=== PATIENT | female | born 1995 | race Caucasian/White ===

== ENCOUNTER → 2018-05-04 16:18 | Outpatient (CLI) | payer OTHER, SELFPAY ==
[2018-05-04 20:13] LABS: HCG,Quantitative 8 mIU/mL
== END ==
PROVIDERS: Visit Provider Nurse Practitioner Obstetrics & Gynecology
DX: O03.9 Complete or unspecified spontaneous abortion without complication (principal)
CPT/HCPCS: 36415; 84702

== ENCOUNTER → 2018-06-11 11:02 | Outpatient (CLI) | payer OTHER, SELFPAY ==
[2018-06-11 12:01] LABS: Basophils % 0.5 % (0.1-2.0); Eosinophils # 0.1 K/mm3 (0.0-0.4); Eosinophils % 2.5 % (0.1-12.0); Hematocrit 38.6 % (37.0-47.0); Hemoglobin 13.1 g/dL (12.2-16.2); Lymphocytes # 2.1 K/mm3 (0.7-4.5); Lymphocytes % 37.6 % (10-50); Mean Corpuscular HGB Conc 33.9 g/dL (31.8-35.4); Mean Corpuscular Hemoglobin 30.3 pg (27.0-31.2); Mean Corpuscular Volume 89.3 fl (81-99); Mean Platelet Volume 6.6 fl (7.4-10.4); Monocytes # 0.3 K/mm3 (0.1-1.0); Neutrophils % 54.5 % (37.0-80.0); Platelet Count 178 K/mm3 (142-424); Red Blood Count 4.32 M/mm3 (4.20-5.40); Red Cell Distribution Width 13.5 % (11.5-17.5); White Blood Count 5.5 K/mm3 (4.8-10.8)
[2018-06-11 19:42] LABS: Amphetamine/Metha Screen,Urine Negative ng/mL (<1000); Barbiturates Screen,Urine Negative ng/mL (<200); Benzodiazepines Screen,Urine Negative ng/mL (<200); Cannabinoid Screen,Urine Negative ng/mL (<50); Cocaine Screen,Urine Negative ng/mL (<300); Methadone Screen,Urine Negative ng/mL (<300); Opiate Screen,Urine Negative ng/mL (<300); Phencyclidine Screen,Urine Negative ng/mL (<25)
[2018-06-12 09:20] LABS: Rapid Plasma Reagin Ab Titer Non Reactive (NonRea<1:1)
[2018-06-12 13:45] LABS: HIV Screen 4th Generation wRfx Non Reactive (Non Reactive); Hepatitis B Surface Antigen Negative (Negative); Hepatitis C Antibody 0.1 s/co ratio (0.0-0.9); Rubella Antibodies, IgG <0.90 index (Immune >0.99)
[2018-06-13 18:38] LABS: Buprenorphine, Urine Negative ng/mL (Cutoff=10)
== END ==
PROVIDERS: Visit Provider Nurse Practitioner Obstetrics & Gynecology
DX: Z34.90 Encounter for supervision of normal pregnancy, unspecified, unspecified trimester (principal)
CPT/HCPCS: 36415; 80305; 80307; 85025; 86592; 86703; 86762; 86850; 87340; 87380; G0432

== ENCOUNTER → 2018-06-18 07:48 | Outpatient (CLI) | payer OTHER, SELFPAY ==
--- NOTE | 2018-06-18 07:50 | US_ITS ---
US OB transvaginal HISTORY: ITS.REASON: US OB Dates ORDERING PHYSICIAN: Chirag Bunn MD PATIENT AGE: 22 years COMPARISON: None FINDINGS: An intrauterine gestational sac is present with a pole with a crown-rump length of 0.46cm correlating to gestational age of 6 weeks 2 days. heart tones are present with an FHR of 112 bpm's. Yolk sac is noted. Adnexa: Unremarkable. IMPRESSION: Live intrauterine gestation at 6 weeks 2 days as described above. Estimated due date by Ultrasound is 02/09/2019
== END ==
PROVIDERS: PCP Nurse Practitioner Obstetrics & Gynecology; Visit Provider Nurse Practitioner Obstetrics & Gynecology
DX: O26.841 Uterine size-date discrepancy, first trimester (principal)
CPT/HCPCS: 76817

== ENCOUNTER → 2018-08-04 07:43 | Outpatient (CLI) | payer OTHER, SELFPAY ==
--- NOTE | 2018-08-04 07:44 | US_ITS ---
US gallbladder HISTORY: Right upper quadrant pain and vomiting ITS.REASON: US Gallbladder- Possible Cholecystitis RUQP ORDERING PHYSICIAN: Chirag Bunn MD PATIENT AGE: 23 years Comparison: None FINDINGS: PANCREAS: Unremarkable. No obvious mass or abnormal fluid collection. No ductal dilatation LIVER: No focal liver lesions demonstrated. Homogeneous echogenicity. No intrahepatic biliary ductal dilatation evident RIGHT KIDNEY: Unremarkable. Normal size and echogenicity. No hydronephrosis GALLBLADDER: No gallstones, gallbladder wall thickening, pericholecystic fluid, or biliary dilatation. There are a few specular echoes are present within the gallbladder without shadowing consistent with sludge/concentrated bile IMPRESSION: 1. No evidence of cholelithiasis or cholecystitis. 2. Small amount gallbladder sludge
== END ==
PROVIDERS: PCP Family Medicine; Visit Provider Nurse Practitioner Obstetrics & Gynecology
DX: K81.9 Cholecystitis, unspecified (principal); R10.11 Right upper quadrant pain
CPT/HCPCS: 76705

== ENCOUNTER → 2018-09-21 09:06 | Outpatient (CLI) | payer OTHER, SELFPAY ==
--- NOTE | 2018-09-21 09:07 | US_ITS ---
US OB /maternal detail: INDICATION: ITS.REASON: US OB Complete ORDERING PHYSICIAN: Chirag Bunn MD PATIENT AGE: 23 years TECHNIQUE: ultrasound transabdominal scanning. COMPARISON: No previous relevant studies. FINDINGS: Single viable intrauterine gestation. Breech position. Placenta: Anterior placenta grade 1. There is average amount fluid. The cervix appears satisfactory. Closed and measuring 3 cm in length. Complete survey performed and was unremarkable on the submitted images as in PACS. No discrete anomalies identified on survey imaging by technologist. Active fetus. Three-vessel cord with satisfactory umbilical cord insertion. 4- chamber heart noted. Survey of brain & ventricles unremarkable. Face and neck survey unremarkable. Diaphragm and chest views unremarkable. Abdomen: Both kidneys noted and unremarkable. Stomach noted and satisfactory. Spine: Survey of the spine satisfactory with no anomalies identified nor imaged. Both arms and legs noted. Amniotic Fluid: Adequate. Maternal adnexa: No significant findings. Measurements: Average ultrasound age 19w6d. Gestational Age 19w6d. Estimated due date by ultrasound age 0802/09/2019. Estimated weight 323 grams. BPD = 19w5d OFD = 20w5d HC = 19w4d AC = 20w0d FL = 20w1d Growth Percentile= 51% Heart Rate = 149 Cerebellum = 20w5d Humerus = 19w4d HC/AC is 1.15 (1.09-1.26). CI is 74% (70-86%). FL/BPD is 72%. FL/AC is 22%. IMPRESSION: There is a single live fetus which is in breech presentation with an average ultrasound age of 19 weeks and 6 days. heart body motion noted. All parameters correlate. Fetus is active with no obvious anomalies. Please see above for details
== END ==
PROVIDERS: PCP Family Medicine; Visit Provider Nurse Practitioner Obstetrics & Gynecology
DX: Z36.0 Encounter for antenatal screening for chromosomal anomalies (principal)
CPT/HCPCS: 76811

== ENCOUNTER 2018-10-30 17:49 | Outpatient (CLI) | payer OTHER, SELFPAY ==
[2018-10-30 18:13] VITALS: BMI 25.7; BMI 26.5
[2018-10-30 18:51] LABS: Microscopic, Urine URINE MICROSCOPIC (MICROSCOPIC)
[2018-10-30 19:02] LABS: Appearance,Urine CLEAR (Clear); Bilirubin,Urine Negative (Negative); Blood, Urine Negative (Negative); Color,Urine YELLOW (Yellow); Glucose,Urine (UA) Negative (Negative); Ketones,Urine Negative (Negative); Leukocyte Esterase,Urine 1+ (Negative); Nitrate,Urine Negative (Negative); Protein,Urine Negative (Negative); Specific Gravity, Urine 1.015 (1.005-1.030); Urobilinogen,Urine 0.2 EU/dl (0.2)
[2018-10-30 19:18] LABS: Amphetamine/Metha Screen,Urine Negative ng/mL (<1000); Barbiturates Screen,Urine Negative ng/mL (<200); Benzodiazepines Screen,Urine Negative ng/mL (<200); Cannabinoid Screen,Urine Negative ng/mL (<50); Cocaine Screen,Urine Negative ng/mL (<300); Methadone Screen,Urine Negative ng/mL (<300); Opiate Screen,Urine Negative ng/mL (<300); Phencyclidine Screen,Urine Negative ng/mL (<25)
[2018-10-30 19:20] LABS: Fetal Fibronectin (Rapid) Negative (Negative)
[2018-10-30 19:21] LABS: Bacteria,Urine Trace /lpf; Trichomonas,Urine Occasional /lpf
== END 2018-10-30 20:10 | disposition home or self-care (01) ==
LOC: OBOUT 17:51 → OB 17:53
PROVIDERS: PCP Family Medicine; Visit Provider Nurse Practitioner Obstetrics & Gynecology
DX: O47.02 False labor before 37 completed weeks of gestation, second trimester (principal); Z3A.20 20 weeks gestation of pregnancy
CPT/HCPCS: 59025; 80305; 81001; 82731; 87086; 96360; 96372

== ENCOUNTER 2018-10-31 18:05 | Outpatient (CLI) | payer OTHER, SELFPAY ==
[2018-10-31 18:20] VITALS: BP 104/65; PULSE 104; RESP 20; TEMP 37.4; O2SAT 96; BMI 26.2
== END 2018-10-31 19:47 | disposition home or self-care (01) ==
LOC: OBOUT 18:06 → OB 18:07
PROVIDERS: PCP Family Medicine; Visit Provider Nurse Practitioner Obstetrics & Gynecology
DX: O47.02 False labor before 37 completed weeks of gestation, second trimester (principal); Z3A.20 20 weeks gestation of pregnancy
CPT/HCPCS: 59025; 96372

== ENCOUNTER 2018-11-19 07:43 | Outpatient (CLI) | payer OTHER, SELFPAY ==
[2018-11-19 08:31] LABS: Glucose,Fasting 83 mg/dL (60-105)
[2018-11-19 09:45] VITALS: BP 126/69; PULSE 114; RESP 18; O2SAT 98
[2018-11-19 10:00] LABS: Glucose 1 Hour 121 mg/dL (74-106)
== END 2018-11-19 09:55 | disposition home or self-care (01) ==
LOC: LAB 07:44 → INF 09:41
PROVIDERS: Visit Provider Nurse Practitioner Obstetrics & Gynecology
DX: Z34.90 Encounter for supervision of normal pregnancy, unspecified, unspecified trimester (principal)
CPT/HCPCS: 36415; 82951; 96372; J2790

== ENCOUNTER 2018-11-28 18:35 | Outpatient (CLI) | payer OTHER, SELFPAY ==
[2018-11-28 18:48] VITALS: BP 103/62; PULSE 114; RESP 20; TEMP 36.6; O2SAT 100; BMI 26.1
[2018-11-28 19:00] LABS: Microscopic, Urine URINE MICROSCOPIC (MICROSCOPIC)
[2018-11-28 19:19] LABS: Appearance,Urine CLOUDY (Clear); Blood, Urine Negative (Negative); Color,Urine DK YELLOW (Yellow); Glucose,Urine (UA) Negative (Negative); Ketones,Urine 3+ (Negative); Leukocyte Esterase,Urine 2+ (Negative); Nitrate,Urine Negative (Negative); Protein,Urine 1+ (Negative); Specific Gravity, Urine >= 1.030 (1.005-1.030)
[2018-11-28 19:22] LABS: Bilirubin,Urine 2+ (Negative); Squamous Epithelial Cell,Urine 50-100 #/hpf (0-5); WBC,Urine 20-50 #/hpf (0-3)
[2018-11-28 19:25] LABS: Amphetamine/Metha Screen,Urine Negative ng/mL (<1000); Barbiturates Screen,Urine Negative ng/mL (<200); Benzodiazepines Screen,Urine Negative ng/mL (<200); Cannabinoid Screen,Urine Negative ng/mL (<50); Cocaine Screen,Urine Negative ng/mL (<300); Methadone Screen,Urine Negative ng/mL (<300); Opiate Screen,Urine Negative ng/mL (<300); Phencyclidine Screen,Urine Negative ng/mL (<25)
[2018-11-28 20:34] LABS: Basophils % 0.1 % (0.1-2.0); Eosinophils % 0.2 % (0.1-12.0); Hematocrit 33.3 % (37.0-47.0); Lymphocytes # 0.9 K/mm3 (0.7-4.5); Lymphocytes % 11.4 % (10-50); Mean Corpuscular Hemoglobin 31.8 pg (27.0-31.2); Mean Corpuscular Volume 88.1 fl (81-99); Mean Platelet Volume 6.9 fl (7.4-10.4); Monocytes # 0.3 K/mm3 (0.1-1.0); Monocytes % 3.4 % (1.7-9.3); Neutrophils # 6.4 K/mm3 (1.8-7.8); Platelet Count 183 K/mm3 (142-424); Red Blood Count 3.78 M/mm3 (4.20-5.40); Red Cell Distribution Width 13.1 % (11.5-17.5); White Blood Count 7.6 K/mm3 (4.8-10.8)
[2018-11-28 20:36] LABS: MANUAL DIFFERENTIAL MANUAL DIFFERENTIAL (MANUAL DIFF)
[2018-11-28 20:48] LABS: Alanine Aminotransferase 23 U/L (12-78); Albumin Level 2.6 gm/dL (3.4-5.0); Albumin/Globulin Ratio 0.7 (1.1-1.8); Alkaline Phosphatase 103 U/L (46-116); Anion Gap 13.4 mEq/L (5-15); Aspartate Amino Transferase 23 U/L (15-37); Bilirubin,Total 0.5 mg/dL (0.2-1.0); Blood Urea Nitrogen 7 mg/dL (7-18); Calcium 8.3 mg/dL (8.5-10.1); Carbon Dioxide 23 mmol/L (21.0-32.0); Chloride 103 mmol/L (98-107); Creatinine Clearance Estimated 159 mL/min (50-200); Creatinine,Serum 0.59 mg/dL (0.55-1.02); Eosinophils % 1 % (0-3); Estimated Glomerular Filt Rate 124 ml/min (>60); GFR (African American) 150 ML/MIN (>60); Globulin 3.7 gm/dl (1.3-3.2); Glucose 78 mg/dL (74-106); Lymphocytes % 6 % (10-50); Monocytes % 2 % (2-9); Neutrophils % 85 % (42-76); Platelet Estimate Normal; Potassium 3.4 mmoL/L (3.5-5.1); RBC Morphology Normal; Sodium 136 mmol/L (136-145); Total Cells Counted 100; Total Protein,Serum 6.3 gm/dL (6.4-8.2)
== END 2018-11-28 21:50 | disposition home or self-care (01) ==
LOC: OBOUT 18:39 → OB 18:39
PROVIDERS: PCP Nurse Practitioner Obstetrics & Gynecology; Visit Provider Obstetrics & Gynecology
DX: O47.03 False labor before 37 completed weeks of gestation, third trimester (principal); Z3A.29 29 weeks gestation of pregnancy; M54.5 Low back pain
CPT/HCPCS: 59025; 80053; 80305; 81001; 85007; 85025; 87086; 96360; 96367; J0595

== ENCOUNTER → 2019-01-14 17:22 | Outpatient (CLI) | payer OTHER, SELFPAY | PROVIDERS: Visit Provider Nurse Practitioner Obstetrics & Gynecology | DX: Z34.90 Encounter for supervision of normal pregnancy, unspecified, unspecified trimester (principal) | CPT/HCPCS: 86403 ==

== ENCOUNTER 2019-01-20 14:20 | Inpatient (IN) ==
[2019-01-20 15:51] LABS: Microscopic, Urine URINE MICROSCOPIC (MICROSCOPIC)
[2019-01-20 15:59] LABS: Appearance,Urine CLEAR (Clear); Basophils % 0.2 % (0.1-2.0); Blood, Urine Negative (Negative); Color,Urine YELLOW (Yellow); Eosinophils # 0.1 K/mm3 (0.0-0.4); Eosinophils % 0.5 % (0.1-12.0); Glucose,Urine (UA) Negative (Negative); Hematocrit 32.7 % (37.0-47.0); Hemoglobin 11.2 g/dL (12.2-16.2); Ketones,Urine Negative (Negative); Leukocyte Esterase,Urine TRACE (Negative); Lymphocytes # 2.3 K/mm3 (0.7-4.5); Lymphocytes % 21.1 % (10-50); Mean Corpuscular HGB Conc 34.4 g/dL (31.8-35.4); Monocytes # 0.5 K/mm3 (0.1-1.0); Monocytes % 4.8 % (1.7-9.3); Neutrophils # 7.9 K/mm3 (1.8-7.8); Neutrophils % 73.3 % (37.0-80.0); PH,Urine 6.5 (5.0-8.5); Platelet Count 224 K/mm3 (142-424); Protein,Urine TRACE (Negative); Red Blood Count 3.67 M/mm3 (4.20-5.40); Red Cell Distribution Width 13.3 % (11.5-17.5); Specific Gravity, Urine 1.025 (1.005-1.030); Urobilinogen,Urine 0.2 EU/dl (0.2); White Blood Count 10.8 K/mm3 (4.8-10.8)
[2019-01-20 16:05] LABS: Bilirubin,Urine Negative (Negative)
[2019-01-20 16:09] LABS: Amphetamine/Metha Screen,Urine Negative ng/mL (<1000); Barbiturates Screen,Urine Negative ng/mL (<200); Benzodiazepines Screen,Urine Negative ng/mL (<200); Cannabinoid Screen,Urine Negative ng/mL (<50); Cocaine Screen,Urine Negative ng/mL (<300); Methadone Screen,Urine Negative ng/mL (<300); Opiate Screen,Urine Negative ng/mL (<300); Phencyclidine Screen,Urine Negative ng/mL (<25)
--- NOTE | 2019-01-20 16:10 | History & Physical Report ---
OB - H&P: HPI Antepartum - History of Present Illness Chief complaint: Contractions History of present illness: She is a 23-year-old 6 para 1 aborta 4 who is 38 weeks gestational age. She is having regular contractions here in the office. She is admitted for labor and delivery. She was found to be 5 cm dilated 75% effaced and station - 2. I ruptured her membranes and there was copious clear fluid. IUPC and scalp clip were applied. Stress test is reactive and she is nia every 2 to 3 minutes. She would like an epidural.6 - History of Present Criteria for establishing EDC:: LMP confirmed by 1st trimester US care: good care Ultrasounds: normal mid trimester US Obstetrical complications: none Medical complications: none [facility] History I have reviewed the patient's past medical history: Yes Medical History: Reports:: Asthma Denies:: Diabetes Mellitus Type 1, Diabetes Mellitus Type 2 *Have you ever received a pneumonia vaccine?: No *Have you received a flu vaccine this season?: No Other Surgeries: Yes: Dilation and Curettage. No: Amputation: No Fractures: No - *Social History Smoking Status: Current every day smoker Tobacco Type: cigarettes # Packs/Day (cigarettes): 1 Alcohol Intake: never Substance Use Type: denies use *Occupational Status:: other *Travel in the last 8 weeks: None Family Hx:: No significant family history [employer] history: Abnormal Uterine Bleeding, Spontaneous Para: 1 Review of Systems - Review of Systems Review of systems:: pertinent systems reviewed and negative unless documented below Meds Home Medications Medication Instructions Recorded Confirmed Type Pnv95/Iron Fum/Folic Acid 1 tab PO DAILY 07/06/18 01/20/19 History [ Vitamins Tablet] Progesterone, Micronized 100 mg PO DAILY 07/06/18 01/20/19 History [Progesterone] ferrous sulfate 325 mg (65 mg 325 mg PO DAILY #30 tab 10/07/18 01/20/19 Rx iron) tablet terconazole 0.8 % vaginal cream 1 appful VAGINAL QHS 3 Days #20 g 11/18/18 01/20/19 Rx Allergies Allergy/AdvReac Type Severity Reaction Status Date / Time No Known Allergies Allergy Verified 01/14/19 11:23 OB - H&P: Exam - Physical Exam Vital signs: Temp Pulse Resp BP Pulse Ox 97.8 F 105 H 22 124/71 99 07/24/19 14:30 01/20/19 14:30 01/20/19 14:30 01/20/19 14:30 01/20/19 14:30 - Constitutional no acute distress - Routine HEENT Exam Head: Present: normocephalic Eye: Present: EOMI, PERRL ENT: Present: mucous membranes moist - Routine Neck Exam Present: supple, full ROM - Routine Respiratory Exam Absent: accessory muscle use (good air entry bilaterally), respiratory distress, wheezes, crackles - Routine Cardiovascular Exam Present: RRR. Absent: murmur - Routine Abdominal Exam Present: soft, normoactive bowel sounds. Absent: tenderness, distended, guarding - Routine Rectal Exam Patient deferred: visual exam, digital exam - Routine Exam Patient deferred: external exam, groin exam, perineal exam - Routine Extremities Exam Present: full ROM. Absent: cyanosis, edema - Routine Skin Exam Present: intact. Absent: cyanosis - Routine Neurological Exam Present: alert, oriented X3 - Routine Psychiatric Exam Present: normal affect OB - Results - Labs Labs: Short CBC 01/20/19 Range/Units 15:35 WBC 10.8 (4.8-10.8) K/mm3 Hgb 11.2 L (12.2-16.2) g/dL Hct 32.7 L (37.0-47.0) % Plt Count 224 (142-424) K/mm3 Urine 01/20/19 Range/Units 15:35 Urine Color Yellow (Yellow) Urine Appearance Clear (Clear) Urine pH 6.5 (5.0-8.5) Ur Specific [place] 1.025 (1.005-1.030) Urine Protein Trace (Negative) Urine Glucose (UA) Negative (Negative) OB - A/P Antepartum (1) Normal delivery at term Current visit: Yes Status: Acute - Additional Plan Planning to breastfeed?: Yes Plan: expectant management Additional Information:: She is having regular contractions he is found to be 5 cm dilated. We will expect a vaginal delivery. She is anticipating an epidural shortly.
[2019-01-20 16:18] LABS: Lymphocytes % 20 % (10-50); Monocytes % 2 % (2-9); Neutrophils % 77 % (42-76); RBC Morphology Normal; Total Cells Counted 100
[2019-01-20 17:01] LABS: Bacteria,Urine Trace /lpf
--- NOTE | 2019-01-20 17:07 | Progress Note ---
[facility] Anesthesia Checklist - Patient Identification Patient Identification: Arm Band - Structural Data Admitted From: Home Planned Operative Procedure/s: labor epidural Consent for Planned Operative Procedure(s) Verified: Yes Verified Documents: Surgical Consent, History and Physical - NPO Status Verified Time NPO: 00:00 - Additional verifications Anesthesia Reactions: No - Airway Assessment C-Spine Mobility Assessed: Yes TMJ Mobility Assessed: Yes Dentition: Good Dentition - Neurological Assessment Level of Consciousness: Awake, Alert - Anesthesia Plan Anesthesia Risk discussed: Yes Anesthesia Plan: Verified ASA Class: II Anesthesia Type: Epidural [facility] History I have reviewed the patient's past medical history: Yes Medical History: Reports:: Asthma Denies:: Diabetes Mellitus Type 1, Diabetes Mellitus Type 2 *Have you ever received a pneumonia vaccine?: Yes *Have you received a flu vaccine this season?: No Other Surgeries: Yes: Dilation and Curettage. No: Amputation: No Fractures: No - *Social History Smoking Status: Current every day smoker Tobacco Type: cigarettes # Packs/Day (cigarettes): 1 Alcohol Intake: never Substance Use Type: denies use *Occupational Status:: other *Travel in the last 8 weeks: None Family Hx:: No significant family history [employer] history: Abnormal Uterine Bleeding, Spontaneous Para: 1
--- NOTE | 2019-01-20 17:33 | Progress Note ---
Labor Note - Subjective: Date: 01/20/19 Time: 17:33 regular contraction - Objective: NST:: Reactive Contractions:: every 2-3 minutes Cervical Dilation:: 5-6 Effacement:: 90% Station: -1 Membranes: artificially ruptured - Fetus: Monitoring?: Yes monitoring type:: Internal Comment:: Her scalp clip had fallen off and I reapplied the scalp clip. - Assessment: Labor progressing?: Yes Cephalopelvic disproportion?: No Patient Problems: All Active Problems (Updated 01/20/19 @ 17:04 by Chirag Bunn MD) Bleeding in early (Acute) Epigastric pain (Acute) Gastroenteritis (Acute) Normal delivery at term (Acute) (Acute) First trimester bleeding (Acute) - Plan: Anesthesia for epidural?: Yes Continue to labor down?: Yes Plan for ?: No Continue to monitor?: Yes Start pushing?: No
--- NOTE | 2019-01-20 19:27 | Procedure Note ---
- Delivery Note Delivery Date:: 01/20/19 Delivery Time:: 19:08 Anesthesia Type: Epidural Was labor medically induced?: No Induction method: none Gestational age (weeks): 37 delivered prior to 39 weeks?: Yes Justification for early elective delivery:: Active Labor Infant Gender: Male at 1 minute: 9 at 5 minutes: 9 LAC or MLE?: LAC Delivery Procedure:: She is a 23-year-old 6 para 1 aborta 4 who was 37+ weeks gestational age. She arrived in active labor and was found to be 4 cm dilated. She had her membranes ruptured and under labor epidural progressed to full dilation. She delivered spontaneously a liveborn male child at 7:08 PM in the evening of January 20, 2019. On deliver the head the anterior shoulder then rapidly delivered followed by the rest the 's body atraumatically. The baby cried spontaneously. We allowed the cord to continue to pulsate for approximately 1 minute. The cord was then doubly clamped and cut. The baby was then placed on the mother's abdomen for further care. The nurses assigned Apgars of 9 at 1 minute and 9 at 5 minutes. We then obtained cord blood as well as cord pH. Using gentle traction on the cord and countertraction the fundus I was able to easily deliver the placenta intact. He had a normal three-vessel cord. He had bilateral labial tears were repaired with interrupted 3-0 Vicryl Rapide suture. She had a small first-degree vaginal laceration that was repaired with interrupted 3-0 Vicryl Rapide suture. She has O Rh- blood, she is rubella nonimmune and was group B streptococcus negative. She plans to bottlefeed. Her field identification specialist is Dr. Mccord. Estimated blood loss was approximately 600 cc. Laceration:: vaginal, labial Placental Delivery Description: Spontaneous
[2019-01-21 07:40] LABS: Hemoglobin 8.7 g/dL (12.2-16.2)
--- NOTE | 2019-01-21 07:55 | Progress Note ---
Internal Medicine - PN: Subj *Date: 01/21/19 *Time: 07:53 Interval history: She is doing well this morning. She is eating and drinking and ambulating. She is bottlefeeding. Lochia is normal. Exam Vital signs and Labs for Last 24 Hours: Temp Pulse Resp BP Pulse Ox 99.1 F 91 H 18 118/72 99 01/21/19 00:24 01/21/19 00:24 01/21/19 00:24 01/21/19 00:24 01/20/19 14:30 Laboratory Results - last 24 hr 01/20/19 15:35: WBC 10.8, RBC 3.67 L, Hgb 11.2 L, Hct 32.7 L, MCV 89.0, MCH 30.6, MCHC 34.4, RDW 13.3, Plt Count 224, Neut % (Auto) 73.3, Lymph % (Auto) 21.1, [place] % (Auto) 4.8, Eos % (Auto) 0.5, Baso % (Auto) 0.2, Neut # (Auto) 7.9 H, Lymph # (Auto) 2.3, [place] # (Auto) 0.5, Eos # (Auto) 0.1, Baso # (Auto) 0.0, Total Counted 100, Neutrophils % (Manual) 77 H, Band Neutrophils % 1.0, Lymphocytes % (Manual) 20, Monocytes % (Manual) 2, Platelet Estimate Normal, RBC Morphology Normal 01/20/19 15:35: Urine Color Yellow, Urine Appearance Clear, Urine pH 6.5, Ur Specific [place] 1.025, Urine Protein Trace, Urine Glucose (UA) Negative, Urine Ketones Negative, Urine Blood Negative, Urine Nitrate Negative, Urine Bilirubin Negative, Urine Urobilinogen 0.2, Ur Leukocyte Esterase Trace, Urine WBC 3-5, Ur Squamous Epith Cells 3-5, Urine Bacteria Trace 01/20/19 15:35: Urine Opiates Screen Negative, Urine Methadone Screen Negative, Ur Barbituates Screen Negative, Ur Phencyclidine Scrn Negative, Ur Amphetamines Screen Negative, U Benzodiazepines Scrn Negative, Urine Cocaine Screen Negative, U Marijuana (THC) Screen Negative 01/20/19 15:35: Blood Type O Negative, Antibody Screen Positive 01/20/19 19:08: Blood Type Cancelled, Direct Antiglob Test Cancelled 01/20/19 19:32: Cord ABG pH 7.38 I & O for Last 24 hours: Intake & Output 01/18/19 01/19/19 01/20/19 01/21/19 11:59 11:59 11:59 11:59 Weight 160 lb - Constitutional no acute distress Assessment and Plan (1) Normal delivery at term Current visit: Yes Status: Acute Category: Medical Code(s): O80 - Encounter for full-term uncomplicated delivery - Assessment and plan all Dx Assessment and Plan for all problems:: She continues to do well. We will plan to send her home tomorrow.
--- NOTE | 2019-01-21 08:42 | Discharge Summary ---
General - General Admission date:: 01/20/19 Discharge date: 01/22/19 HPI HPI: She is a 23-year-old 6 now para 2 aborta 4 who was a 7+ weeks gestational age. Her due date was February 09, 2019. She came in in active labor. Hospital Course Hospital Course: She had her membranes ruptured and under labor epidural progressed to full dilation. She delivered spontaneously a liveborn male child at 1908 p.m. in the evening of January 20, 2019. The baby had Apgars of 9 at 1 minute and 9 at 5 minutes. She has O Rh- blood and will receive RhoGam if the baby is negative. She is rubella nonimmune and will receive MMR. She was group B streptococcus negative. Her driver operator Dr. Mccord. She is discharged home to follow-up with me in approximately 2 weeks time. She will continue with her vitamins and iron. She was given a prescription for Percocet 5/325 number 12 tablets. Objective Vital signs: Temp Pulse Resp BP Pulse Ox 99.1 F 91 H 18 118/72 99 01/21/19 00:24 01/21/19 00:24 01/21/19 00:24 01/21/19 00:24 01/20/19 14:30 Results Labs on day of discharge: Labs from last 24 hours 01/21/19 01/20/19 01/20/19 05:53 19:32 19:08 WBC RBC Hgb 8.7 L D Hct 26.0 L MCV MCH MCHC RDW Plt Count Neut % (Auto) Lymph % (Auto) [place] % (Auto) Eos % (Auto) Baso % (Auto) Neut # (Auto) Lymph # (Auto) [place] # (Auto) Eos # (Auto) Baso # (Auto) Total Counted Neutrophils % (Manual) Band Neutrophils % Lymphocytes % (Manual) Monocytes % (Manual) Platelet Estimate RBC Morphology Cord ABG pH 7.38 Urine Color Urine Appearance Urine pH Ur Specific [place] Urine Protein Urine Glucose (UA) Urine Ketones Urine Blood Urine Nitrate Urine Bilirubin Urine Urobilinogen Ur Leukocyte Esterase Urine WBC Ur Squamous Epith Cells Urine Bacteria Urine Opiates Screen Urine Methadone Screen Ur Barbituates Screen Ur Phencyclidine Scrn Ur Amphetamines Screen U Benzodiazepines Scrn Urine Cocaine Screen U Marijuana (THC) Screen Blood Type Cancelled Antibody Screen Antibody Identification Direct Antiglob Test Cancelled 01/20/19 01/20/19 01/20/19 15:35 15:35 15:35 WBC RBC Hgb Hct MCV MCH MCHC RDW Plt Count Neut % (Auto) Lymph % (Auto) [place] % (Auto) Eos % (Auto) Baso % (Auto) Neut # (Auto) Lymph # (Auto) [place] # (Auto) Eos # (Auto) Baso # (Auto) Total Counted Neutrophils % (Manual) Band Neutrophils % Lymphocytes % (Manual) Monocytes % (Manual) Platelet Estimate RBC Morphology Cord ABG pH Urine Color Urine Appearance Urine pH Ur Specific [place] Urine Protein Urine Glucose (UA) Urine Ketones Urine Blood Urine Nitrate Urine Bilirubin Urine Urobilinogen Ur Leukocyte Esterase Urine WBC Ur Squamous Epith Cells Urine Bacteria Urine Opiates Screen Negative Urine Methadone Screen Negative Ur Barbituates Screen Negative Ur Phencyclidine Scrn Negative Ur Amphetamines Screen Negative U Benzodiazepines Scrn Negative Urine Cocaine Screen Negative U Marijuana (THC) Screen Negative Blood Type O Negative Antibody Screen Positive Antibody Identification Pending Direct Antiglob Test 01/20/19 01/20/19 15:35 15:35 WBC 10.8 RBC 3.67 L Hgb 11.2 L Hct 32.7 L MCV 89.0 MCH 30.6 MCHC 34.4 RDW 13.3 Plt Count 224 Neut % (Auto) 73.3 Lymph % (Auto) 21.1 [place] % (Auto) 4.8 Eos % (Auto) 0.5 Baso % (Auto) 0.2 Neut # (Auto) 7.9 H Lymph # (Auto) 2.3 [place] # (Auto) 0.5 Eos # (Auto) 0.1 Baso # (Auto) 0.0 Total Counted 100 Neutrophils % (Manual) 77 H Band Neutrophils % 1.0 Lymphocytes % (Manual) 20 Monocytes % (Manual) 2 Platelet Estimate Normal RBC Morphology Normal Cord ABG pH Urine Color Yellow Urine Appearance Clear Urine pH 6.5 Ur Specific [place] 1.025 Urine Protein Trace Urine Glucose (UA) Negative Urine Ketones Negative Urine Blood Negative Urine Nitrate Negative Urine Bilirubin Negative Urine Urobilinogen 0.2 Ur Leukocyte Esterase Trace Urine WBC 3-5 Ur Squamous Epith Cells 3-5 Urine Bacteria Trace Urine Opiates Screen Urine Methadone Screen Ur Barbituates Screen Ur Phencyclidine Scrn Ur Amphetamines Screen U Benzodiazepines Scrn Urine Cocaine Screen U Marijuana (THC) Screen Blood Type Antibody Screen Antibody Identification Direct Antiglob Test DS: Diagnosis - Discharge Diagnosis (1) Normal delivery at term Status: Acute Discharge Plan - Patient Discharge Instructions ACTIVITY: No heavy lifting DIET: continue same diet - Follow up Plan Disposition: Home, Self-Jail Medications: Home Medications Medication Instructions Recorded Confirmed Type No Known Home Medications 01/20/19 01/20/19 History Oxycodone HCl/Acetaminophen 1 - 2 tab PO Q4-6H PRN #12 tab 01/21/19 Rx [Percocet 5/325mg tablet] Prescriptions/Medication Reconciliation: New Oxycodone HCl/Acetaminophen [Percocet 5/325mg tablet] 1 - 2 tab PO Q4-6H PRN #12 tab PRN Reason: Severe Pain No Action No Known Home Medications
[2019-01-22 05:14] VITALS: BP 117/73
--- NOTE | 2019-01-22 11:34 | Progress Note ---
Internal Medicine - PN: Subj *Date: 01/22/19 *Time: 11:33 Interval history: day #2 No new complaints Ready for discharge Exam Vital signs and Labs for Last 24 Hours: Temp Pulse Resp BP Pulse Ox 97.8 F 81 18 117/73 98 01/22/19 03:45 01/22/19 03:45 01/22/19 03:45 01/22/19 03:45 01/22/19 03:45 I & O for Last 24 hours: Intake & Output 01/19/19 01/20/19 01/21/19 01/22/19 11:59 11:59 11:59 11:59 Weight 160 lb Narrative: CONSTITUTIONAL: no acute distress HEENT: mucous membranes moist PULMONARY: breathing unlabored without audible wheezes CV: no tachycardia or visible JVD; normal LE peripheral pulses ABD: soft, NT/ND, no guarding : fundus firm at/below umbilicus SKIN: no visible rash or lesions EXT: 1+ edema LEs NEURO: alert/oriented, no altered mental status PSYCH: appropriate mood and demeanor without visible anxiety/depression Assessment and Plan (1) Normal delivery at term Current visit: Yes Status: Acute Category: Medical Code(s): O80 - Encounter for full-term uncomplicated delivery - Assessment and plan all Dx Assessment and Plan for all problems:: Discharge home as arranged per Dr. Bunn
== END 2019-01-22 14:26 | disposition home or self-care (01) | DRG 807 ==
LOC: OBOUT 14:20 → OB 14:23
PROVIDERS: ADMIT Nurse Practitioner Obstetrics & Gynecology; ATTEND Nurse Practitioner Obstetrics & Gynecology
CPT/HCPCS: C1758

== ENCOUNTER → 2019-06-25 10:43 | Outpatient (CLI) | payer OTHER, SELFPAY ==
[2019-06-25 11:52] LABS: Basophils % 0.4 % (0.1-2.0); Eosinophils # 0.2 K/mm3 (0.0-0.4); Eosinophils % 3.2 % (0.1-12.0); Hematocrit 45.5 % (37.0-47.0); Hemoglobin 15.3 g/dL (12.2-16.2); Lymphocytes # 1.8 K/mm3 (0.7-4.5); Lymphocytes % 27.9 % (10-50); Mean Corpuscular HGB Conc 33.6 g/dL (31.8-35.4); Mean Corpuscular Hemoglobin 29.3 pg (27.0-31.2); Mean Platelet Volume 7.6 fl (7.4-10.4); Monocytes # 0.3 K/mm3 (0.1-1.0); Neutrophils % 63.5 % (37.0-80.0); Platelet Count 201 K/mm3 (142-424); Red Blood Count 5.22 M/mm3 (4.20-5.40); Red Cell Distribution Width 13.1 % (11.5-17.5); White Blood Count 6.4 K/mm3 (4.8-10.8)
[2019-06-25 12:45] LABS: HCG Qualitative, Serum Negative (Negative)
[2019-06-25 14:08] LABS: Blood Urea Nitrogen 9 mg/dL (7-18); Carbon Dioxide 25 mmol/L (21.0-32.0); Chloride 105 mmol/L (98-107); Creatinine,Serum 0.73 mg/dL (0.55-1.02); Estimated Glomerular Filt Rate 97 ml/min (>60); GFR (African American) 118 ML/MIN (>60); Glucose 72 mg/dL (74-106); Sodium 141 mmol/L (136-145)
== END ==
PROVIDERS: Visit Provider Nurse Practitioner Obstetrics & Gynecology
DX: Z01.818 Encounter for other preprocedural examination (principal); R87.613 High grade squamous intraepithelial lesion on cytologic smear of cervix (HGSIL); Z30.09 Encounter for other general counseling and advice on contraception
CPT/HCPCS: 36415; 80048; 84703; 85025

== ENCOUNTER → 2022-07-02 14:18 | Outpatient (CLI) | payer OTHER, SELFPAY ==
--- NOTE | 2022-07-02 14:22 | US_ITS ---
FINAL REPORT CLINICAL HISTORY: DISORDER OF THYROID GLAND FINDINGS: THYROID ULTRASOUND Thyroid gland is normal size. The parenchyma shows normal echogenicity. 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 No solid or suspicious mass is seen. IMPRESSION: Tiny thyroid cysts compatible with TI-RADS 1. No follow-up recommended. Reviewed, Interpreted and Dictated by Rita Carlton MD Transcribed by Sanjeev Villegas Authenticated and [facility]
== END ==
PROVIDERS: PCP Nurse Practitioner Family; Visit Provider Nurse Practitioner Family
DX: E07.9 Disorder of thyroid, unspecified (principal)
CPT/HCPCS: 76536

== ENCOUNTER 2023-02-22 16:57 | Emergency (ER) | payer OTHER, SELFPAY ==
--- NOTE | 2023-02-22 17:13 | PC.NURSE ---
Klever Norman EMT-P collected strep swab on pt, verbal order per MD.
--- NOTE | 2023-02-22 17:21 | PC.NURSE ---
rounded on pt in lobby advised we were full at this time , strep swab obtained, advised we would get to her as soon as possible
[2023-02-22 17:40] VITALS: BP 130/84; PULSE 95; RESP 18; TEMP 36.9; O2SAT 99; BMI 27.4
--- NOTE | 2023-02-22 17:59 | PC.NURSE ---
lab states approx 6 minutes left on strep swab until results
[2023-02-22 18:22] LABS: Strep Scrn Group A (Rapid) Negative (Negative)
--- NOTE | 2023-02-22 18:36 | PC.NURSE ---
placed pt in triage room, charge nurse did triage assessment and i obtained vital signed let them know we have no beds as soon as one opens up we would get her a room
--- NOTE | 2023-02-22 18:58 | [facility].EDGENADL ---
Discharge Plan Disposition Patient Disposition: Home, Self-Care Condition: Good Prescriptions Prescriptions: No Action oxycodone-acetaminophen [Endocet] 5-325 mg tablet 1 tab PO Q4H PRN (Reason: pain) Qty: 20 0RF Referrals Follow up/Referrals: Raul Leger APRN [Primary Care Provider] - See instructions Activity Restrictions/Add. Instructions Additional Instructions/Restrictions: You were evaluated in the emergency department today. Please take Tylenol and ibuprofen at home as needed for pain. Your COVID swab is pending. Return to the emergency department for new or worsening symptoms. Follow-up with your primary care provider over the next 4 days. Clinical Impressions Clinical Impression: Acute viral pharyngitis Instructions Patient Instructions: DI for Viral Upper Respiratory Infection -- Adult Discharge ED Provider: Nichelle Owens General Adult HPI General Chief complaint: PAIN Stated complaint: blisters in throat Time Seen by Provider: 02/22/23 18:16 Mode of Arrival: Ambulatory Source of Information: Patient Limitations: No Limitations Description of Symptoms (Recalled from ER Triage Doc. by RN): Pt reports blisters in throat that she notice this morning, chills and migraine. Pt states no known fevers. History of Present Illness HPI narrative: This patient is a 27-year-old female who denies significant past medical history presented to the emergency department for evaluation with concern for sore throat that started this morning. She also complains of chills and headache. She denies any fever. She states that she noticed an ulcer in the back of her throat on the right side, so she decided to come in to get checked out. She is concerned that she may have COVID. She has otherwise been well without any other concerns. Related Data Previous Rx's Medication Instructions Recorded oxycodone-acetaminophen 5 mg-325 1 tab PO Q4H PRN pain #20 tabs 30/19 mg tablet (Endocet) Allergies Allergy/AdvReac Type Severity Reaction Status Date / Time No Known Allergies Allergy Verified 07/14/19 13:46 [facility] Disclaimer: The information contained in this section may have been updated after the patient was seen, as this information can be updated by other users. Social History Smoking Status: Current every day smoker tobacco type: cigarettes packs per day: 1 second hand exposure: Yes alcohol intake: never substance use type: denies use current occupational status: unemployed Travel in the last 8 weeks: None housing: house current occupational exposures/hazards: No caffeine: No ROS Obtained: Yes All systems reviewed & no additional complaints except as documented Physical Exam General General appearance: alert and in no apparent distress Head Head exam: atraumatic and normocephalic Eye Eye exam: Present normal appearance, PERRL and EOMI ENT ENT exam: Present mucous membranes moist and normal external ear exam Expanded ENT Exam Open Mouth Image: 1. Small ulcer with pharyngeal erythema Mouth exam: Present tongue normal Throat exam: Absent tonsillar exudate Neck Neck exam: Present normal inspection, full ROM and trachea midline; Absent tenderness Chest Chest inspection: Present normal inspection and symmetric chest wall rise; Absent tenderness Respiratory Respiratory exam: Present normal lung sounds bilaterally; Absent respiratory distress, wheezes, stridor or accessory muscle use Cardiovascular Cardiovascular exam: Present regular rate and normal rhythm Abdominal Exam Abdominal exam: Present soft; Absent distention, tenderness or guarding Extremities Exam Extremities exam: Present normal inspection, full ROM and normal capillary refill; Absent tenderness or edema Back Exam Back exam: Present normal inspection and full ROM; Absent tenderness Neurological Exam Neurological exam: Present alert, oriented X3, CN II-X
[2023-02-22 19:08] LABS: Coronavirus 19, PCR Not Detected (NotDetected); Influenza A, PCR Not Detected (NotDetected); Influenza B, PCR Not Detected (NotDetected)
[2023-02-22 19:22] VITALS: BP 125/70; PULSE 73; RESP 19; TEMP 36.8; O2SAT 98
== END 2023-02-22 19:24 | disposition home or self-care (01) ==
PROVIDERS: Emergency Provider Emergency Medicine; PCP Nurse Practitioner Family
DX: J02.9 Acute pharyngitis, unspecified (principal); R51.9 Headache, unspecified; B34.9 Viral infection, unspecified; F17.210 Nicotine dependence, cigarettes, uncomplicated
CPT/HCPCS: 87430; 87636; 99283